=== PATIENT | female | born 2000 | race African-American/Black ===

== ENCOUNTER 2021-09-07 23:22 | Emergency (ER) | payer MEDICAID, SELFPAY ==
[2021-09-08] MEDS ORDERED: cefTRIAXone\\ROCEPHIN 500 MG VIAL ONE (00:07)
[2021-09-08] MEDS ORDERED: Sterile Water 10 ML ONE (00:07)
[2021-09-08 00:13] LABS: Bilirubin Neg (Negative); Blood, Urine 25 (Negative); Clarity Slightly Cloudy (Clear); Glucose, Urine (Dipstick) Normal (Negative); Ketone, Urine Negative (Negative); Leukocyte 500 (Negative); Nitrite Negative (Negative); Protein, Urine (Dipstick) 30 mg/dl (Neg-Trace); Specific Gravity, Urine 1.025 (1.002-1.036)
[2021-09-08 00:23] LABS: Bacteria/HPF 1+ HPF (None Seen); RBC/HPF 0-3 HPF (0-3); Squamous Epithelial 0-3 HPF (0-3); WBC/HPF 21-50 HPF (0-3)
[2021-09-08 00:24] LABS: Pregnancy Test - Urine (BHCG) Negative (Negative); Pregu Control Background? CLEAR/WHITE (CLR/WHITE); Pregu Control Bar Appear? YES (CONTROL BAR); Specific Gravity 1.025 (1.002-1.036)
[2021-09-11 21:53] LABS: Chlam.trachomatis by PCR,Urine Not Detected (NotDetected)
== END 2021-09-08 01:09 | disposition home or self-care (01) ==
LOC: CSHERS 23:22
DX: N89.8 Other specified noninflammatory disorders of vagina (principal); L02.211 Cutaneous abscess of abdominal wall; F17.210 Nicotine dependence, cigarettes, uncomplicated
CPT/HCPCS: 81003; 81015; 81025; 87491; 87591; 96372; 99283; J0696

== ENCOUNTER 2021-09-17 00:47 | Emergency (ER) | payer SELFPAY | END 2021-09-17 01:12 | disposition home or self-care (01) | LOC: CSHERS 00:47 | DX: L73.9 Follicular disorder, unspecified (principal); F17.200 Nicotine dependence, unspecified, uncomplicated | CPT/HCPCS: 99283 ==

== ENCOUNTER 2021-10-06 10:41 | Emergency (ER) | payer SELFPAY | END 2021-10-06 12:51 | disposition left against medical advice (07) | LOC: CSHERS 10:41 | DX: Z53.21 Procedure and treatment not carried out due to patient leaving prior to being seen by health care provider (principal) ==

== ENCOUNTER 2023-11-10 18:09 | Emergency (ER) | payer OTHER, SELFPAY ==
[2023-11-10] MEDS ORDERED: Famotidine 20 MG TAB ONE (19:18)
== END 2023-11-10 20:10 | disposition home or self-care (01) ==
LOC: CSHERS 18:09
DX: T78.40XA Allergy, unspecified, initial encounter (principal); F17.200 Nicotine dependence, unspecified, uncomplicated
CPT/HCPCS: 99283

== ENCOUNTER 2023-11-13 11:01 | Emergency (ER) | payer OTHER ==
[2023-11-13] MEDS ORDERED: Ondansetron PF 4 MG/2 ML Vial ONE (12:05)
[2023-11-13] MEDS ORDERED: Famotidine/PF 20 mg/2ml Vial ONE (12:06)
[2023-11-13 12:49] LABS: Bilirubin Neg (Negative); Blood, Urine 250 (Negative); Glucose, Urine (Dipstick) Normal (Negative); Ketone, Urine Negative (Negative); Leukocyte 25 (Negative); Nitrite Negative (Negative); Protein, Urine (Dipstick) 30 mg/dl (Neg-Trace); Specific Gravity, Urine 1.015 (1.005-1.030); Urobilinogen Normal mg/dL (Less than 2); pH, Urine 6.5 (5.0-9.0)
[2023-11-13 12:57] LABS: Amphetamine Not Detected (NotDetected); Barbiturates Screen Not Detected (NotDetected); Benzodiazepine Screen Not Detected (NotDetected); Cocaine Metabolite Screen Not Detected (NotDetected); Methadone Not Detected (NotDetected); Methamphetamine Not Detected (NotDetected); Opiate Screen Not Detected (NotDetected); Oxycodone Screen Not Detected (NotDetected); Phencyclidine (PCP) Not Detected (NotDetected); THC/Cannabinoid Screen Detected (NotDetected); Tricyclic Screen Not Detected (NotDetected)
[2023-11-13 12:59] LABS: Pregnancy Test - Urine (BHCG) Negative (Negative); Pregu Control Background? CLEAR/WHITE (CLR/WHITE); Pregu Control Bar Appear? YES (CONTROL BAR); Specific Gravity 1.015 (1.002-1.036)
[2023-11-13 13:04] LABS: #Monocytes 1.2 10x3/uL (0.0-1.1); #Neutrophils 12.3 10x3/uL (1.5-8.4); %Basophils 0.1 % (0.0-2.0); %Eosinophils 0.2 % (0.0-6.0); %Lymphocytes 8.3 % (18.0-47.0); %Monocytes 8.3 % (0.0-10.0); %Neutrophils 82.6 % (40.0-75.0); Hematocrit 42.8 % (34.9-44.5); Hemoglobin 15.2 g/dL (12.0-15.5); Mean Corpuscular HGB CONC 35.5 g/dL (32.0-36.0); Mean Corpuscular Hemoglobin 25.6 pg (27.0-33.0); Mean Corpuscular Volume 72.2 fl (81.6-98.3); Mean Platelet Volume 10.8 fl (7.4-10.4); Platelet Count 371 10x3/uL (150-450); Red Blood Cell (RBC) Count 5.93 10x6/uL (3.90-5.03); White Blood Cell (WBC) Count 14.9 10x3/uL (3.5-10.5)
[2023-11-13 13:09] LABS: ALT (SGPT) 23 U/L (8-55); AST (SGOT) 16 U/L (5-34); Albumin 4.1 g/dL (3.5-5.0); Alkaline Phosphatase 64 U/L (40-110); Anion Gap 15 mmol/L (10-20); BUN (Urea Nitrogen) 10 mg/dL (7.0-18.7); Bilirubin, Total 0.9 mg/dL (0.2-1.2); Calc. Creatinine Clearance 0 mL/min (70-130); Calcium 9.3 mg/dL (7.8-10.44); Carbon Dioxide 24 mmol/L (22-29); Chloride 99 mmol/L (98-107); Estimated GFR 99; Globulin 4.4 g/dL (2.4-3.5); Glucose 117 mg/dL (70-105); Lipase 24 U/L (8-78); Potassium 3.1 mmol/L (3.5-5.1); Protein, Total 8.5 g/dL (6.0-8.3); Sodium 135 mmol/L (136-145)
[2023-11-13 13:12] LABS: Clarity Slightly Cloudy (Clear)
[2023-11-13 13:16] LABS: CAUTI Indications for Culture Pelvic or flank pain; RBC/HPF Greater than 50 HPF (0-3)
[2023-11-13 13:17] LABS: Bacteria/HPF 1+ HPF (None Seen)
[2023-11-13 13:18] LABS: Urine Culture Reflex No No
[2023-11-13] MEDS ORDERED: Potassium Chloride 20 MEQ TAB ONE (13:40)
[2023-11-13 13:43] LABS: Microcytosis MODERATE=15-30 cells (100X) (0-5/hpf); Target Cells SLIGHT = 2-5 cells (100X) (0-1/hpf)
== END 2023-11-13 14:12 | disposition home or self-care (01) ==
LOC: CSHERS 11:01
DX: R11.2 Nausea with vomiting, unspecified (principal); F17.210 Nicotine dependence, cigarettes, uncomplicated
CPT/HCPCS: 76705; 80053; 80306; 81001; 81025; 83690; 85025; 87086; 96361; 96374; 96375; J2405; S0028

== ENCOUNTER 2024-04-08 06:45 | Emergency (ER) | payer OTHER ==
[2024-04-08] MEDS ORDERED: Ketorolac Tromethamine 30 MG (1 mL) VIAL ONE (07:48)
[2024-04-08] MEDS ORDERED: Ondansetron PF 4 MG/2 ML Vial ONE ×2 (07:48→10:11)
[2024-04-08] MEDS ORDERED: Promethazine HCl 25 MG/ML VIAL IM SCH (10:45)
== END 2024-04-08 13:03 | disposition home or self-care (01) ==
LOC: CSHERS 06:45
DX: F10.129 Alcohol abuse with intoxication, unspecified (principal); R41.82 Altered mental status, unspecified; R11.2 Nausea with vomiting, unspecified; F17.210 Nicotine dependence, cigarettes, uncomplicated
CPT/HCPCS: 96372; 96374; 96375; 96376; J1885; J2405; J2550

== ENCOUNTER 2024-04-09 23:25 | Emergency (ER) | payer OTHER ==
[2024-04-10] MEDS ORDERED: Ondansetron PF 4 MG/2 ML Vial ONE (00:42)
[2024-04-10] MEDS ORDERED: Ketorolac Tromethamine 30 MG (1 mL) VIAL ONE (00:42)
[2024-04-10 01:15] LABS: BHCG - Serum Negative (NEGATIVE); Pregs Control Background? CLEAR/WHITE (CLR/WHITE); Pregs Control Bar Appear? YES (CONTROL BAR)
[2024-04-10 01:22] LABS: ALT (SGPT) 21 U/L (8-55); AST (SGOT) 20 U/L (5-34); Albumin 3.9 g/dL (3.5-5.0); Alkaline Phosphatase 62 U/L (40-110); Anion Gap 14 mmol/L (10-20); BUN (Urea Nitrogen) 8 mg/dL (7.0-18.7); Bilirubin, Total 0.6 mg/dL (0.2-1.2); Calc. Creatinine Clearance 0 mL/min (70-130); Calcium 9.7 mg/dL (7.8-10.44); Carbon Dioxide 23 mmol/L (22-29); Chloride 103 mmol/L (98-107); Estimated GFR 102; Globulin 4.5 g/dL (2.4-3.5); Glucose 100 mg/dL (70-105); Lipase 18 U/L (8-78); Magnesium 1.7 mg/dL (1.6-2.6); Potassium 3.3 mmol/L (3.5-5.1); Protein, Total 8.4 g/dL (6.0-8.3); Sodium 137 mmol/L (136-145)
[2024-04-10 01:24] LABS: #Basophils 0.04 10x3/uL (0.0-0.2); #Monocytes 0.75 10x3/uL (0.0-1.1); #Neutrophils 7.31 10x3/uL (1.5-8.4); %Basophils 0.4 % (0.0-2.0); %Monocytes 7.7 % (0.0-10.0); %Neutrophils 75.5 % (40.0-75.0); Hematocrit 42.1 % (34.9-44.5); Hemoglobin 14.9 g/dL (12.0-15.5); Mean Corpuscular HGB CONC 35.4 g/dL (32.0-36.0); Mean Corpuscular Hemoglobin 25.5 pg (27.0-33.0); Mean Platelet Volume 10.4 fL (7.4-10.4); Platelet Count 331 10x3/uL (150-450); RBC Distribution Width 14.3 % (11.5-14.5); Red Blood Cell (RBC) Count 5.85 10x6/uL (3.90-5.03); White Blood Cell (WBC) Count 9.7 10x3/uL (3.5-10.5)
[2024-04-10] MEDS ORDERED: Haloperidol Lactate 5 MG/ML VIAL ONE (01:37)
[2024-04-10 02:12] LABS: Microcytosis SLIGHT = 6-15 cells (100X) (0-5/hpf)
[2024-04-10 02:13] LABS: Platelet Adequacy Comment Appears Adequate; Target Cells SLIGHT = 2-5 cells (100X) (0-1/hpf)
[2024-04-10] MEDS ORDERED: Potassium Chloride 20 MEQ TAB ONE (02:24)
[2024-04-10 02:48] LABS: Bilirubin Neg (Negative); Blood, Urine Negative (Negative); Glucose, Urine (Dipstick) Normal (Negative); Ketone, Urine 50 mg/dL (Negative); Leukocyte 500 (Negative); Nitrite Negative (Negative); Protein, Urine (Dipstick) 30 mg/dl (Neg-Trace)
[2024-04-10 03:01] LABS: Clarity Slightly Cloudy (Clear)
[2024-04-10 03:03] LABS: Bacteria/HPF 2+ HPF (None Seen); CAUTI Indications for Culture Pelvic or flank pain; RBC/HPF 0-3 HPF (0-3)
[2024-04-10 03:04] LABS: Urine Culture Reflex No No
== END 2024-04-10 03:51 | disposition home or self-care (01) ==
LOC: CSHERS 23:25
DX: E87.6 Hypokalemia (principal); R11.2 Nausea with vomiting, unspecified
CPT/HCPCS: 80053; 81001; 83690; 83735; 84703; 85025; 96361; 96372; 96374; 96375; J1630; J1885; J2405